=== PATIENT | female | born 1990 | race American Indian/Alaskan Native ===

== ENCOUNTER 2018-11-14 19:21 | Emergency (ER) | payer MEDICAID ==
--- NOTE | 2018-11-14 19:56 | Emergency Department Report ---
Blank Doc - Documentation Documentation: 28 y o female presents at approx 12 weeks cc of low pelvic and back pain denies vaginal bleed
[2018-11-14 20:29] LABS: Bacteria,Urine 2+ /HPF (Negative); Bilirubin,Urine NEG (Negative); Blood,Urine MOD (Negative); Color,Urine Yellow (Yellow); Mucus,Urine 2+ /HPF; Sperm,Urine 1+ /HPF (NP)
[2018-11-14 20:30] LABS: RBC,Urine > 182.0 /HPF (0.0-6.0); WBC,Urine > 182.0 /HPF (0.0-6.0)
[2018-11-14 20:31] LABS: HCG Qualitative,Urine Negative (Negative)
--- NOTE | 2018-11-14 23:40 | Emergency Department Report ---
ED Abdominal Pain HPI - General Chief Complaint: Abdominal Pain Stated Complaint: ABD PAIN NV BACK PAIN FEVER 11WKS Time Seen by Provider: 11/14/18 19:53 Source: patient Mode of arrival: Ambulatory Limitations: No Limitations - History of Present Illness Initial Comments: Patient is a 28-year-old female A0 who presents for urinary frequency urgency and dysuria 2 days with abdominal cramping patient denies vaginal bleeding No back pain nausea vomiting no fever chills MD Complaint: abdominal pain Onset/Timin -: days(s) Location: suprapubic Radiation: suprapubic Migration to: no migration Severity: moderate Severity scale (0 -10): 3 Quality: cramping Consistency: intermittent Improves With: nothing Worsens With: other (voiding ) Associated Symptoms: dysuria. denies: nausea, vomiting, diarrhea, fever, chills, hematemesis, melena, hematuria - Related Data LMP Date: 08/15/18 Previous Rx's Medication Instructions Recorded Last Taken Type cephALEXin [Keflex] 500 mg PO BID 10 Days #20 cap 11/14/18 Unknown Rx Allergies Allergy/AdvReac Type Severity Reaction Status Date / Time No Known Allergies Allergy Verified 11/14/18 19:31 ED Review of Systems ROS: Stated complaint: ABD PAIN NV BACK PAIN FEVER 11WKS Other details as noted in HPI Constitutional: denies: chills, fever Eyes: denies: eye pain, eye discharge, vision change ENT: denies: ear pain, throat pain Respiratory: denies: cough, shortness of breath, wheezing Cardiovascular: as per HPI Endocrine: no symptoms reported Gastrointestinal: abdominal pain (cramping ). denies: nausea, vomiting, diarrhea, constipation, hematemesis Genitourinary: urgency, dysuria, frequency. denies: hematuria, discharge, dyspareunia Musculoskeletal: denies: back pain, joint swelling, arthralgia Skin: as per HPI Neurological: denies: headache, weakness, paresthesias Psychiatric: denies: anxiety, depression Hematological/Lymphatic: as per HPI. denies: easy bleeding, easy bruising ED Past Medical Hx - Past Medical History Previous Medical History?: No - Surgical History Past Surgical History?: No - Social History Smoking Status: Never Smoker Substance Use Type: None - Medications Home Medications: Home Medications Medication Instructions Recorded Confirmed Last Taken Type cephALEXin [Keflex] 500 mg PO BID 10 Days #20 cap 11/14/18 Unknown Rx ED Physical Exam - General Limitations: No Limitations General appearance: alert, in no apparent distress - Head Head exam: Present: atraumatic, normocephalic - Eye Eye exam: Present: normal appearance, PERRL, EOMI Pupils: Present: normal accommodation - ENT ENT exam: Present: mucous membranes moist - Neck Neck exam: Present: normal inspection, full ROM - Respiratory Respiratory exam: Present: normal lung sounds bilaterally. Absent: respiratory distress, wheezes, stridor - Cardiovascular Cardiovascular Exam: Present: regular rate, normal rhythm, normal heart sounds. Absent: systolic murmur, diastolic murmur, rubs, gallop - GI/Abdominal GI/Abdominal exam: Present: soft, normal bowel sounds. Absent: distended, tenderness, guarding, rebound, bruit, hernia - Rectal Rectal exam: Present: deferred - External exam: Present: other (pt defers to FOOD CLERK follow up denies dicharge no vaginal bleeding ) - Extremities Exam Extremities exam: Present: normal inspection, full ROM - Back Exam Back exam: Present: normal inspection, full ROM. Absent: tenderness, CVA tenderness (R), CVA tenderness (L), muscle spasm, rash noted - Neurological Exam Neurological exam: Present: alert, oriented X3, CN II-XII intact, normal gait, reflexes normal - Psychiatric Psychiatric exam: Present: normal affect, normal mood - Skin Skin exam: Present: warm, dry, intact, normal color. Absent: rash ED Course Vital Signs 11/14/18 19:33 Temperature 98.6 F Pulse Rate 83 Respiratory 18 Rate Blood Pressure 127/58 O2 Sat by Pulse 98 Oximetry ED Medical Decision Making - Radiology Data Radiology results: report reviewed, image reviewed US, Single IUP 10weeks and 6 days, - Medical Decision Making US, Single IUP 10weeks and 6 days, pt denies vaginal bleeding no vaginal discha rge , ua :pos for wbc, and rbc, pt denies hematuria , there is no urinary flow problem , no fever no chills, no n/v, pt is adamant that there is no STD , plan: roceph 1 gm IM x 1, dc to home with keflex po bid x 10 days pt will follow up with OBGYN in 2 days pt is currently tolerating po intake with n/v pt for dc home via pov and family member. Critical care attestation.: If time is entered above; I have spent that time in minutes in the direct care of this critically ill patient, excluding procedure time. ED Disposition Clinical Impression: UTI (urinary tract infection) during Qualifiers: Trimester: first trimester Qualified Code(s): O23.41 - Unspecified infection of urinary tract in , first trimester Abdominal pain during Qualifiers: Trimester: first trimester Qualified Code(s): O26.891 - Other specified related conditions, first trimester; R10.9 - Unspecified abdominal pain Disposition: DC-01 TO HOME OR SELFCARE Is pt being admited?: No Does the pt Need Aspirin: No Condition: Stable Instructions: Abdominal Pain (ED), Urinary Tract Infection in Women (ED), Abdominal Pain in (ED) Prescriptions: cephALEXin [Keflex] 500 mg PO BID 10 Days #20 cap Referrals: FRANKY BARRON MD [Staff Physician] - 2-3 Days Forms: Work/School Release Form(ED) Time of Disposition: 23:49
--- NOTE | 2018-11-14 23:53 | Ultrasound Report ---
PROCEDURE: US OB <= 14 WEEKS FETUS TECHNIQUE: Real-time transabdominal and transvaginal sonography of the uterus, placenta, amniotic fl uid, adnexa, and fetus was performed with image documentation. Measurements were obtained to determin e age/size. M-mode Doppler was used to document heartbeat. ADDITIONAL GESTATION: None. HISTORY: vag pelvic pain pos preg COMPARISONS: None . FINDINGS: CRL: 40 mm, which corresponds to a gestational age of: 11 weeks, 0 days. Yolk Sac: Appropriate for gestational age. . Embryonic Cardiac Activity: 174 beats from minute . Gestational Sac: Size and shape are appropriate for gestational age Placenta: Normal Amniotic fluid: Appropriate for gestational age. Cervix: Normal. Right Ovary: Normal . Left Ovary: Normal . Estimated delivery date: 06/06/2019 . Uterus and adnexa: Normal. IMPRESSION: Single live intrauterine gestation at approximately 11 weeks 0 days . EDC by US 019 . This document is electronically signed by Aspen Sood DO., Nov 14 2018 11:51:21 PM ET
[2018-11-14 23:58] LABS: Basophils # (Auto) 0.1 K/mm3 (0.0-0.1); Basophils % (Auto) 0.8 % (0.0-1.8); Eosinophils # (Auto) 0.1 K/mm3 (0.0-0.4); Eosinophils % (Auto) 0.8 % (0.0-4.3); Hematocrit 34.6 % (30.3-42.9); Hemoglobin 11.6 gm/dl (10.1-14.3); Lymphocytes # (Auto) 2.8 K/mm3 (1.2-5.4); Lymphocytes % (Auto) 32.2 % (13.4-35.0); Mean Corpuscular HGB Conc 34 % (30-34); Mean Corpuscular Volume 81 fl (79-97); Monocytes # (Auto) 0.8 K/mm3 (0.0-0.8); Monocytes % (Auto) 8.8 % (0.0-7.3); Platelet Count 297 K/mm3 (140-440); Red Blood Count 4.27 M/mm3 (3.65-5.03); Red Cell Distribution Width 14.7 % (13.2-15.2)
[2018-11-15] MEDS ORDERED: XYLOCAINE 1% MPF 5 mL INFILTRATI ONE (00:21)
[2018-11-15] MEDS ORDERED: ROCEPHIN IM ONE (00:21)
[2018-11-15 00:57] VITALS: BP 116/61
== END 2018-11-15 00:59 | disposition home or self-care (01) ==
LOC: ED 19:21
DX: O23.41 Unspecified infection of urinary tract in pregnancy, first trimester (principal); Z3A.01 Less than 8 weeks gestation of pregnancy
CPT/HCPCS: 36415; 76801; 76817; 81001; 81025; 84702; 84703; 85025; 86900; 86901; 96372; 99284; J0696

== ENCOUNTER 2019-05-21 12:03 | Inpatient (IN) | payer MEDICAID ==
[2019-05-21] MEDS ORDERED: TERBUTALINE 1 MG/1 ML INJ IVP PRN (14:55)
[2019-05-21] MEDS ORDERED: LIDOCAINE (2%) 20 MG/1 ML VIAL 20 ML MDV INFILTRATI ONE (14:55)
[2019-05-21] MEDS ORDERED: ePHEDrine SULFATE 50 MG/1 ML INJ IV PRN ×2 (14:55→17:13)
[2019-05-21] MEDS ORDERED: TERBUTALINE 1 MG/1 ML INJ SUB-Q PRN (14:55)
[2019-05-21] MEDS ORDERED: NalbUPHINE 10 MG/1 ML INJ IV PRN (14:55)
[2019-05-21] MEDS ORDERED: fentaNYL 100 MCG/2 ML INJ IV PRN (14:55)
[2019-05-21] MEDS ORDERED: MINERAL OIL 30 ML ORAL LIQD PO PRN (14:55)
[2019-05-21] MEDS ORDERED: BUTORPHANOL 2 MG/1 ML INJ IV PRN ×2 (14:55)
[2019-05-21 15:04] LABS: Hemoglobin 10.3 gm/dl (10.1-14.3)
[2019-05-21] MEDS ORDERED: ONDANSETRON 4 MG/2 ML INJ IV PRN ×2 (15:07→22:08)
[2019-05-21] MEDS: LACTATED RINGERS 1,000 ML IV SCH ×2 (15:31→18:05)
--- NOTE | 2019-05-21 15:47 | Ultrasound Report ---
ULTRASOUND BIOPHYSICAL PROFILE ULTRASOUND OB LIMITED INDICATION: HENNY TECHNIQUE: Transabdominal ultrasound imaging. COMPARISON: None FINDINGS: breathing movement = 2 Gross body movement = 0 tone = 2 Qualitative amniotic fluid volume = 2 Total biophysical score = 6/8 Amniotic fluid index is 7.3 cm. Presentation is cephalic. heart rate is 150 beats per minute. IMPRESSION: biophysical profile equals 6/8. Signer Name: Gonzalo Curiel Jr, MD Signed: 05/21/2019 3:43 PM Workstation Name: [id number]
[2019-05-21 15:54] LABS: Hematocrit 31.5 % (30.3-42.9); Mean Corpuscular HGB Conc 33 % (30-34); Mean Corpuscular Volume 74 fl (79-97); Platelet Count 229 K/mm3 (140-440); Red Blood Count 4.25 M/mm3 (3.65-5.03)
[2019-05-21] MEDS ORDERED: NALOXONE 2 MG/2 ML INJ IV PRN (17:13)
--- NOTE | 2019-05-21 17:13 | Anesthesia Consultation ---
Anesthesia Consult and Med Hx Date of service: 05/21/19 - Airway Anesthetic Teeth Evaluation: Good ROM Head & Neck: Adequate Mental/Hyoid Distance: Adequate Mallampati Class: Class II Intubation Access Assessment: Good - Pulmonary Exam CTA: Yes - Cardiac Exam Cardiac Exam: RRR - Pre-Operative Health Status ASA Pre-Surgery Classification: ASA2, Emergency Proposed Anesthetic Plan: Epidural - Pulmonary Hx Asthma: No - Cardiovascular System Hx Hypertension: No - Central Nervous System Hx Seizures: No Hx Psychiatric Problems: No - Endocrine Hx Renal Disease: No Hx Hypothyroidism: No Hx Hyperthyroidism: No - Hematic Hx Anemia: No Hx Sickle Cell Disease: No - Other Systems Hx Alcohol Use: No
[2019-05-21] MEDS ORDERED: BUPIVACAINE/PF (0.25%) 2.5 MG/ML 10 ML VIAL INFILTRATI ONE (17:21)
[2019-05-21] MEDS ORDERED: fentaNYL-BUPIV 2 MCG/ML-0.125% 200 MCG/100 ML BAG EPIDURAL SCH (18:00)
[2019-05-21] MEDS: OXYTOCIN 20 UNIT/1000ML DRIP 20 UNITS/1,000 ML BAG IV SCH ×2 (21:50→23:06)
--- NOTE | 2019-05-21 22:00 | History and Physical Report ---
History of Present Illness Date of examination: 05/21/19 Date of admission: 05/21/19 13:01 Chief complaint: leakage of fluid History of present illness: 28y/o @ 37+1 weeks who presents with the complaint of possible leakage of fluid. The patient states today she noted having spontaneous vaginal bleeding. She was unsure if it was amniotic fluid. She denies any precipitating event for the bleeding. course complicated by a history of preeclampsia and an interarterial aneursym for which the patient was cleared for a vaginal delivery by cardiology. The patient was noted to have intermittent vaginal bleeding at presentation and regular uterine contractions. Past History Past Medical History: other (preeclampsia) Past Surgical History: no surgical history Social history: single - Obstetrical History Expected Date of Delivery: 06/10/19 Actual Gestation: 37 Week(s) 1 Day(s) : 3 Para: 2 Hx # Term Pregnancies: 2 Number of Pregnancies: 0 Spontaneous Abortions: 0 Induced : 0 Number of Living Children: 2 Medications and Allergies Allergies Allergy/AdvReac Type Severity Reaction Status Date / Time No Known Allergies Allergy Verified 11/14/18 19:31 Home Medications Medication Instructions Recorded Confirmed Last Taken Type cephALEXin [Keflex] 500 mg PO BID 10 Days #20 cap 11/14/18 Unknown Rx Active Meds: Active Medications Butorphanol Tartrate (Stadol) 1 mg IV Q2H PRN PRN Reason: Pain, Moderate (4-6) Butorphanol Tartrate (Stadol) 2 mg IV Q2H PRN PRN Reason: Pain , Severe (7-10) Last Admin: 05/21/19 15:30 Dose: 2 mg Documented by: Ephedrine Sulfate (Ephedrine Sulfate) 10 mg IV Q2M PRN PRN Reason: Hypotension Fentanyl (Sublimaze) 100 mcg IV Q2H PRN PRN Reason: Labor Pain Oxytocin/Sodium Chloride (Pitocin/Ns 20 Unit/1000ml Drip) 20 units in 1,000 mls @ 125 mls/hr IV DIRECT SRIDHAR Lactated Ringer's (Lactated Ringers) 1,000 mls @ 125 mls/hr IV DIRECT SRIDHAR Last Admin: 05/21/19 18:05 Dose: 125 mls/hr Documented by: Fentanyl/Bupivacaine/Sodium Chlor (Fentanyl-Bupiv 2 Mcg/Ml-0.125%) 200 mcg in 100 mls @ 12 mls/hr EPIDURAL TITR SRIDHAR; Protocol Last Admin: 05/21/19 18:14 Dose: 12 mls/hr Documented by: Mineral Oil (Mineral Oil) 30 ml PO QHS PRN PRN Reason: Constipation Nalbuphine HCl (Nalbuphine) 10 mg IV Q2H PRN PRN Reason: Pain, Moderate (4-6) Naloxone HCl (Naloxone) 0.2 mg IV Q5M PRN PRN Reason: Respiratory sedation Ondansetron HCl (Zofran) 4 mg IV Q4H PRN PRN Reason: Nausea And Vomiting Last Admin: 05/21/19 15:31 Dose: 4 mg Documented by: Terbutaline Sulfate (Brethine) 0.25 mg SUB-Q ONCE PRN PRN Reason: Hyperstimulation/Hypertonicity Terbutaline Sulfate (Brethine) 0.25 mg IVP ONCE PRN PRN Reason: Hyperstimulation/Hypertonicity Review of Systems All systems: negative Genitourinary: vaginal bleeding, leakage of fluid, contractions - Vital Signs Vital signs: Vital Signs Pulse BP 105 H 137/97 05/21/19 12:28 05/21/19 12:28 Temp Pulse Resp BP Pulse Ox 98.5 F 115 H 18 124/57 98 05/21/19 16:00 05/21/19 21:42 05/21/19 16:00 05/21/19 21:23 05/21/19 21:42 - Physical Exam Breasts: Positive: deferred, mass Lungs: Positive: Clear to auscultation Abdomen: Positive: normal appearance Results Result Diagrams: 05/21/19 14:55 Abnormal lab results 05/21/19 Range/Units 14:55 MCV 74 L (79-97) fl MCH 24 L (28-32) pg All other labs normal. Assessment and Plan - Patient Problems (1) Vaginal bleeding during Current Visit: Yes Status: Acute Plan to address problem: admit to L&D (2) Active labor at term Current Visit: Yes Status: Acute
[2019-05-21] MEDS ORDERED: WITCH HAZEL/ GLYCERIN PAD TP PRN (22:08)
[2019-05-21] MEDS ORDERED: PROMETHAZINE 25 MG TAB PO PRN (22:08)
[2019-05-21] MEDS ORDERED: ACETAMINOPHEN 325 MG TAB PO PRN (22:08)
[2019-05-21] MEDS ORDERED: PROMETHAZINE 25 MG RECT SUPP PR PRN (22:08)
[2019-05-21] MEDS ORDERED: MAGNESIUM HYDROXIDE (MOM) ORAL LIQD UDC PO PRN (22:08)
[2019-05-21] MEDS ORDERED: diphenhydrAMINE 25 MG CAP PO PRN (22:08)
[2019-05-21] MEDS ORDERED: LANOLIN/ZINC/DIMETHICONE (LANSINOH) 7 GM TP PRN (22:08)
--- NOTE | 2019-05-21 22:08 | Procedure Note ---
OB Delivery Note - Delivery Date of Delivery: 05/21/19 Surgeon: TINO AGUAYO Estimated blood loss: other (400ml) - Vaginal Delivery presentation: vertex Intrapartum events: abruption Delivery monitor: external FHT, external uterine Route of delivery: Delivery placenta: spontaneous, other (1/3 of placenata with evidence of organized clot) Delivery cord: nuchal cord Episiotomy: none Delivery laceration: none Anesthesia: epidural Delivery comments: Patient progressed to complete complete +1. The patient was noted to have vaginal bleeding during her labor course. Amniotomy was performed with evidence of clear fluid. The patient placed to deliver a liveborn female infant with Apgars of 7 and 8. After delivery of the head was noted to be a nuchal cord 1 that had to be surgically reduced. The shoulders delivered without difficulty. The infant was bulb suctioned and placed on the patient's abdomen. The placenta delivered spontaneously intact with a three-vessel cord. The placenta was noted to have evidence of an organized clot perimeter of the placenta covering approximately one third of the surface of the placenta. No lacerations were noted. Estimated blood loss during the delivery estimated to be 400 mL. weight 6 lbs. 2 oz. - Infant A at 1 minute: 7 at 5 minutes: 8 Gender: Female (weight 6 lbs. 2 oz.)
[2019-05-21] MEDS: IBUPROFEN 600 MG TAB PO SCH (23:15)
[2019-05-22] MEDS: IBUPROFEN 600 MG TAB PO SCH ×2 (04:51→16:41)
--- NOTE | 2019-05-22 08:39 | Progress Note ---
Assessment and Plan A/P PPD#1 routine PP care Subjective - Subjective Date of service: 05/22/19 Principal diagnosis: Patient reports: appetite normal, voiding normally, pain well controlled, flatus, ambulating normally [place]: doing well Objective - Vital Signs Latest vital signs: Vital Signs Temp Pulse Resp BP Pulse Ox 05/22/19 05:58 97.8 F 85 18 103/59 97 05/22/19 00:24 98.0 F 80 20 119/56 98 05/21/19 23:15 18 05/21/19 22:30 100 H 97 05/21/19 22:24 83 133/62 05/21/19 22:17 85 121/59 05/21/19 21:54 97 H 118/58 05/21/19 21:42 115 H 98 05/21/19 21:37 93 H 98 05/21/19 21:32 96 H 98 05/21/19 21:27 102 H 98 05/21/19 21:23 81 124/57 05/21/19 21:22 90 98 05/21/19 21:17 83 97 05/21/19 21:12 83 96 05/21/19 21:07 83 100 05/21/19 21:02 92 H 99 05/21/19 20:57 92 H 99 05/21/19 20:54 103 H 127/57 05/21/19 20:52 85 99 05/21/19 20:47 79 99 05/21/19 20:42 79 99 05/21/19 20:37 88 97 05/21/19 20:32 76 99 05/21/19 20:27 70 98 05/21/19 20:25 91 H 109/58 05/21/19 20:22 82 99 05/21/19 20:17 81 99 05/21/19 20:12 76 99 05/21/19 20:07 86 98 05/21/19 20:02 74 100 05/21/19 19:57 78 99 05/21/19 19:56 91 H 128/58 05/21/19 19:52 75 100 05/21/19 19:47 68 100 05/21/19 19:42 80 99 05/21/19 19:37 106 H 99 05/21/19 19:34 83 103/50 05/21/19 19:32 89 100 05/21/19 19:27 86 99 05/21/19 19:22 85 99 05/21/19 19:17 85 100 05/21/19 19:12 75 100 05/21/19 19:07 81 99 05/21/19 19:02 66 99 05/21/19 18:57 64 99 05/21/19 18:55 68 113/57 05/21/19 18:52 67 100 05/21/19 18:47 68 99 05/21/19 18:42 68 99 05/21/19 18:37 70 99 05/21/19 18:32 75 100 05/21/19 18:27 61 100 05/21/19 18:23 74 102/55 05/21/19 18:22 66 100 05/21/19 18:18 70 112/55 05/21/19 18:17 71 99 05/21/19 18:12 67 98 05/21/19 18:07 74 87/51 99 05/21/19 18:02 71 97/53 99 05/21/19 17:58 68 106/52 05/21/19 17:57 72 99 05/21/19 17:52 78 113/54 99 05/21/19 17:49 67 120/56 05/21/19 17:47 70 99 05/21/19 17:42 82 124/61 100 05/21/19 17:37 76 124/67 99 05/21/19 17:34 89 83 L 05/21/19 17:32 80 120/71 99 05/21/19 17:29 79 120/73 05/21/19 17:27 105 H 100 05/21/19 17:22 101 H 100 05/21/19 17:05 82 126/57 05/21/19 16:00 98.5 F 18 05/21/19 15:55 63 124/61 05/21/19 15:32 89 123/76 05/21/19 14:41 89 123/71 05/21/19 14:14 87 169/101 05/21/19 13:58 94 H 140/73 05/21/19 13:44 101 H 127/70 05/21/19 13:28 103 H 153/80 05/21/19 13:13 96 H 151/86 05/21/19 13:05 97.9 F 16 05/21/19 12:58 91 H 142/80 05/21/19 12:43 95 H 149/88 05/21/19 12:28 105 H 137/97 Intake and Output 05/21/19 05/22/19 05/22/19 23:59 07:59 15:59 Intake Total 479.166 480 Output Total 350 950 Balance 129.166 -470 Intake: IV 479.166 Lactated Ringers 1,000 ml 320.833 @ 125 mls/hr IV DIRECT SRIDHAR Rx#:[id number] PITOCin/NS 20 UNIT/1000ML 158.333 DRIP 20 units In 1,000 ml @ 125 mls/hr IV DIRECT SRIDHAR Rx#:[id number] Oral 480 Output: Urine 350 950 Indwelling Catheter 300 Void 50 950 Other: Total, Intake Amount 240 Total, Output Amount 50 400 # Voids Void 1 Estimated Blood Loss 400 - Exam Breasts: Present: normal Cardiovascular: Present: Regular rate, Normal S1 Lungs: Present: Clear to auscultation, Normal air movement Abdomen: Present: normal appearance, soft, normal bowel sounds. Absent: distention, tenderness, guarding Vulva: both: normal Uterus: Present: normal, firm, fundal height below umbilicus. Absent: bogginess, tenderness Extremities: Present: normal Deep Tendon Reflex Grade: Normal +2 Incision: Present: normal, dry, intact - Labs Labs: Abnormal lab results 05/21/19 Range/Units 14:55 MCV 74 L (79-97) fl MCH 24 L (28-32) pg
[2019-05-22] MEDS: HYDROcodone/ACETAMINOPHEN 5-325 MG TAB PO PRN ×2 (09:29→20:17)
[2019-05-22 10:25] LABS: Hemoglobin 8.1 gm/dl (10.1-14.3)
--- NOTE | 2019-05-22 14:01 | Post Anesthesia Evaluation ---
- Post Anesthesia Evaluation Patient Participated: Yes Airway Patent: Yes Stable Respiratory Function: Yes Nausea/Vomiting: No Temp > 96.8F: Yes Pain Manageable: Yes Adequeate Hydration: Yes Anesthesia Complications: No Block Receding Appropriately: Yes Patient on Ventilator: No
[2019-05-23] MEDS: IBUPROFEN 600 MG TAB PO SCH ×3 (00:04→21:20)
[2019-05-23] MEDS: HYDROcodone/ACETAMINOPHEN 5-325 MG TAB PO PRN ×2 (04:24→15:14)
--- NOTE | 2019-05-23 13:55 | Progress Note ---
Assessment and Plan PPD2 s/p and placental abruption Excessive uterine bleeding- needs ultrasound Acute on chronic anemia- ferrous sulfate Discharge to home pending ultrasound findings Subjective - Subjective Date of service: 05/23/19 Principal diagnosis: Interval history: Pt is PPD2 s/p of viable , abruptio placentae Patient reports: appetite normal, voiding normally, pain well controlled (signi ficant cramping), ambulating normally, other (changing her pad q30 minutes. She passes clots with every void.) : doing well, nursing well Objective - Vital Signs Latest vital signs: Vital Signs Temp Pulse Resp BP BP Pulse Ox 05/23/19 08:33 97.8 F 76 18 111/58 97 05/23/19 00:59 97.7 F 86 18 113/63 97 05/22/19 16:25 97.7 F 77 20 113/63 Intake and Output 05/22/19 05/23/19 05/23/19 23:59 07:59 15:59 Intake Total 720 24 Balance 720 24 Intake: Oral 240 Intake, Free Water 480 24 Other: Total, Intake Amount 120 # Voids Void 1 2 - Exam Lungs: Present: Normal air movement Abdomen: Present: soft Uterus: Present: firm, fundal height below umbilicus
--- NOTE | 2019-05-23 15:22 | Ultrasound Report ---
ULTRASOUND PELVIC COMPLETE HISTORY: Excessive uterine bleeding. 2 days . COMPARISON: 05/21/2019. TECHNIQUE: Transabdominal imaging with color Doppler interrogation. FINDINGS: An enlarged uterus is identified measuring 19 x 8 x 15 cm. No obvious uterine mass. The endometrium measures up to 14 mm in thickness. The ovaries are not visualized. No adnexal cyst or mass. No pelvic fluid collection. IMPRESSION: The endometrium measures 14 mm. uterus. Signer Name: Gonzalo Curiel Jr, MD Signed: 05/23/2019 3:18 PM Workstation Name: [id number]
--- NOTE | 2019-05-23 16:29 | Discharge Summary ---
Providers - Providers Date of Admission: 05/21/19 13:01 Date of discharge: 05/23/19 Attending physician: ROSEMARIE BOYD MD Primary care physician: ROSEMARIE BOYD MD Hospitalization Reason for admission: active labor Delivery: Procedure details: complicated by vaginal bleeding before delivery and 1/3 placental abruption. Episiotomy: none Laceration: none Other procedures: none complications: none Discharge diagnosis: IUP at term delivered Hospital course: Pt was admitted for active labor and progressed to . Met discharge criteria on PPD2. Condition at discharge: Good Disposition: DC-01 TO HOME OR SELFCARE Plan - Discharge Medications Prescriptions: Ferrous Sulfate [Ferrous Sulfate 324 MG] 324 mg PO BID #60 tablet. Ibuprofen [Motrin] 600 mg PO Q6H PRN #60 tablet PRN Reason: Pain - Provider Discharge Summary Activity: routine, no sex for 6 weeks, no heavy lifting 4 weeks, no strenuous exercise Diet: routine Instructions: routine Additional instructions: [] Smoking cessation referral if applicable(refer to patient education folder for contact #) [] Refer to [facility] Booklet Call your doctor immediately for: * Fever > 100.5 * Heavy vaginal bleeding ( >1 pad per hour) * Severe persistent headache * Shortness of breath * Reddened, hot, painful area to leg or breast * Drainage or odor from incision. * Keep incision clean and dry at all times and follow doctor's instructions regarding bathing/showering - Follow up plan Follow up: ROSEMARIE BOYD MD [Primary Care Provider] - 06/19/19 (Please call [facility] to schedule appointment for 4 weeks .)
[2019-05-23 22:05] VITALS: BP 118/70
== END 2019-05-23 22:00 | disposition home or self-care (01) | DRG 774 ==
LOC: TRG 12:03 → LD 12:03 → TRG 12:05 → LD 13:01 → OBSVTOIN 13:01 → OB 05-22 00:16
PROVIDERS: ADMIT Obstetrics & Gynecology; ATTEND Obstetrics & Gynecology
PROC: 10E0XZZ Delivery of Products of Conception, External Approach (ICD-10-PCS; principal; 2019-05-21)
PROC: 3E0R3BZ Introduction of Anesthetic Agent into Spinal Canal, Percutaneous Approach (ICD-10-PCS; 2019-05-21)
PROC: 00HU33Z Insertion of Infusion Device into Spinal Canal, Percutaneous Approach (ICD-10-PCS; 2019-05-21)
DX: O69.81X0 Labor and delivery complicated by cord around neck, without compression, not applicable or unspecified (principal); O45.93 Premature separation of placenta, unspecified, third trimester; O90.81 Anemia of the puerperium; D62 Acute posthemorrhagic anemia; Z3A.37 37 weeks gestation of pregnancy; Z37.0 Single live birth
CPT/HCPCS: 36415; 76815; 76819; 76856; 85014; 85018; 85027; 86850; 86900; 86901; 88307; G0378; J0595; J2405; J2590; J3010; J7120